=== PATIENT | male | born 1955 | race Two or more races ===

== ENCOUNTER 2024-05-26 06:02 | Inpatient (IN) | payer OTHER ==
[~2024-05-26] VITALS: Ht 175.3 cm; Wt 106.0 kg
[~2024-05-26 06:02] MED LIST: ASPI-498 OR; B COCAP12 PO; BACL20TA PO; CHOL100067 PO; EZET10TA22 PO; FAMO-68 PO; GABA-339 PO; LOSA-533 PO; MET50T PO; MONT-8 OR; TURMPOW XX; ZINC50TA7 PO
[2024-05-26] MEDS: ceFAZolin 2 GM/D5W100ml 100 ML IV ONE (06:16)
[2024-05-26] MEDS: TRANEXAMIC ACID 20 ML ONE (06:17)
[2024-05-26] MEDS: LIDOCAINE 2% JELLY 11ml (GLYDO) ONE (06:18)
[2024-05-26] MEDS: CIPROFLOXACIN 400MG/200ML 200 ML IV ONE (06:19)
[2024-05-26] MEDS: SUCCINYLCHOLINE CHLORIDE 20 MG/ML 10ML VIAL IV ONE (06:57)
[2024-05-26] MEDS: ROCURONIUM 10MG/ML 10ML VIAL IV ONE (06:57)
[2024-05-26] MEDS ORDERED: LIDOCAINE 2% TOPICAL JELLY 5 ML URJT TOP ONE (07:06)
[2024-05-26] MEDS ORDERED: LIDOCAINE 1% INJ PF 5ML AMP ONE ×2 (07:06→07:18)
[2024-05-26] MEDS ORDERED: MEPERIDINE HCL (50 MG/ML) 1 ML VIAL ONE (07:06)
[2024-05-26] MEDS ORDERED: PROPOFOL 10 MG/ML 20 ML IV ONE ×4 (07:06→13:21)
[2024-05-26] MEDS ORDERED: fentaNYL CITRATE 100 MCG/2 ML VL ONE ×2 (07:06→09:14)
[2024-05-26] MEDS ORDERED: SODIUM CHLORIDE LOCK 10 ML ONE (07:06)
[2024-05-26] MEDS ORDERED: MIDAZOLAM HCL 2MG/2ML 2ml VIAL (1mg/ml) ONE (07:06)
[2024-05-26] MEDS ORDERED: DexAMETHasone SOD PHOS 10MG/1ML VIAL INJ ONE (07:06)
[2024-05-26] MEDS ORDERED: ONDANSETRON HCL 4 MG/2 ML VIAL ONE (07:06)
[2024-05-26] MEDS: METOCLOPRAMIDE HCL 5MG/ml INJ 2ml VIAL IV ONE (07:30)
[2024-05-26] MEDS ORDERED: MORPHINE SULFATE INJ 2 MG/ml SYRG IV PRN ×3 (07:30→11:00)
[2024-05-26] MEDS ORDERED: fentaNYL CITRATE 100 MCG/2 ML VL IV PRN (07:30)
[2024-05-26] MEDS ORDERED: HYDROmorphone HCL 2 MG/ML VL/or syr IV PRN ×2 (07:30)
--- NOTE | 2024-05-26 07:48 | DVHHP2 ---
History Allergies: Coded Allergies: NO KNOWN ALLERGIES (Unverified , 05/21/24) Chief Complaint: Lumbar stenosis with neurogenic claudication Present Illness(Onset/Duration Patient has had severe incapacitating pain for the past three years which has progressively gotten worse over time Noncontributory in this case Past Surgical History: Other (No prior spine surgeries) Exam Exam General Appearance: Normal HEENT: Normal ENT Inspection Neck: Normal Respiratory: No Accessory Muscle Use, None, No Respiratory Distress Cardiovascular: No JVD, Normal Peripheral Pulses Breast Exam: Deferred Gastrointestinal: Other (No complaints) Genitalia: Deferred Pelvic: Deferred Rectal: Deferred Extremities: Normal inspection, Normal range of motion, Other (5/5 pedal pushes and pulls, lower extremity strength. Hypersensitivity to bilateral legs all planes. Right leg started having radicular symptoms before the left.) Neurologic: Alert, No Motor Deficits, Normal Affect Cerebellar Function: Other (Gait not tested), NOT DONE Skin: Normal Color Plan Additional comments: Patient arrives today for elective spine surgery with Dr. James gaines. Lumbar 3-5 posterior spinal decompression with L3-4, L4-5 posterior spinal interbody fusion with instrumentation bone graft. The patient was informed of the risks and benefits of the procedure. These include but are not limited to complications of anesthesia, postoperative infection, incomplete relief of symptoms, recurrence of symptoms, damage to blood vessels, nerves and tendons, deep venous thrombosis, pulmonary embolism and possible need for repeat surgery in the future. The risks/benefits/alternatives of surgery including but not limited to pain, bleeding, infection, damage to surrounding soft tissue structures, need for reoperation or future surgery, persistent pain/disability/deformity, pseudoarthrotsis, bone graft collapse or extrusion of interbody device, instrumentation failure, need for instrumentation removal, dural tear, temporary or permanent nerve root damage, paralysis, stroke, deep vein thrombosis, pulmonary embolism, and any associated anesthetic risk (dry mouth, sore throat, dental damage, myocardial infarction, respiratory depression, blindness) were described to the patient in detail and the patient wishes to proceed. No guarantee of surgical outcome/improvement was implied. All of the questions were answered thoroughly and consents were obtained. We will obtain all the necessary preop tests in order for the patient to be cleared medically. Call with questions Mark [facility] Orthopaedic Spine Surgery nurse practitioner For Dr Lazarus Tamayo - for staff use only Patient was examined, chart reviewed, labs evaluated, and diagnostic studies and findings analyzed. Case was discussed with Dr. James Tamayo who formulated the plan of care. This medical document was created using an electronic medical record system with [employer] dictation system. Although this document has been carefully reviewed, there might still be some phonetic and typographical errors. These areas are purely typographical due to imperfections of the software programs, and do not reflect any compromise in the patient's medical care. JENNIFER OLIVERA NP May 26, 2024 07:48
--- NOTE | 2024-05-26 07:50 | POSTOP ---
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 Operation performed Lumbar 5 laminectomy with Lumbar 5 foraminotomies and facetectomies to decompress central canal and Lumbar 5 nerve roots Lumbar 4 laminectomy with Lumbar 4 foraminotomies and facetectomies to decompress central canal and Lumbar 4 nerve roots Bilateral Sacral 1 Laminotomies/Foraminotomies/Facetectomies to decompress the central canal and Bilateral Sacral 1 nerve Roots Lumbar 4 to 5 posterior spinal interbody fusion with PEEK cage Lumbar 5 to sacral 1 posterior spinal inter transverse fusion with bone graft Lumbar 4 to sacral 1 posterior spinal instrumentation with pedicle screws Specimen None Anesthesia: General Anesthesiologist: Dr. Sandoval Blood Loss(fluid mgmt) See anesthesia record Tourniquet Time No tourniquet used Surgeon Dr. Ramirez palmar Solar Engineer Michelle Francisco NP Complications & Mgmt None Additional Remarks POD # 0 Dx: lumbar spinal stenosis /degenerative scoliosis lumbar spine. Isthmic spondylolisthesis L5/S1 with bilateral pars defects at L5 -DVT PPX: -Hold all chemical DVT/ blood thinners for 14 days postoperatively -use mechanical DVT PPX such as SCD's, ambulation -Disposition: -Pending -Discharge RX pending -Follow up appointment: with Dr Tamayo on JUN 01 2024 @2pm [id number] [facility] [address] [address] -Pain: - IV pain meds post op day 1, with PO supplementation, goal is to progress weaning off IV medications and control pain with PO only. morphine 4mg q 4 hours (PAIN 7-10) - P.O. analgesics:Tylenol 650MG (PAIN 1-3) Lillian 10/325 mg (PAIN 4-6) - Muscle relaxers scheduled administration. This is a beneficial medications for the incisional pain as it is mostly related to muscle spasms. Flexeril 10 mg TID - Cepacol throat lozenges as needed for sore throat -Antibiotics Operative recommendations: -Postoperative dose:-Post operative antibiotics cefazolin 1 g IV piggyback every 8 hours x 48 hours total of 6 doses -Activity: -Pending PT evaluation and patients progression -Sit at side of bed for meals -Goal: Ambulate independently and safely (may use assistive devices if needed) -Brace: - TLSO brace when mobilizing -Medical Therapy goals: -Afebrile- Patient may develop a expected post operative fever by day 2-3, this may not be accompanied with a elevation in WBC. if fever develops: Acetaminophen for fever. Albuterol nebulizer Tx every 12 hours for 24 hours to facilitate adequate lung expansion and prevent development of atelectasis. -Euglycemic: bloods sugars under 130mmol/L for optimal healing -Normotensive: Avoid events of hypertension. This helps to keep post operative healing intact and avoids destabilization of beneficial hemostatic coagulation. -Lumbar: -If patient is comfortable encouraged the patient to lay on their side to facilitate wound healing -Drains: -Hemovac drains: These will be to full compression unless otherwise ordered. please record and document output AND characteristic of fluid present independently at least once a shift, more often as needed. If output is greater than 100 ml in one hour of kelli blood call provider. These drains will be removed once the drainage is at a acceptable level (generally less than 100ml in 24 hours) -Harjeet dressing: This will stay in place and will be removed at the patients follow up visit. Nursing is to assess the seal and power source. The seal should be intact and the power source should have a green flashing light indicating it is functioning well. Batteries can last up to 14 days. If a leak develops the dressing edges can be reinforced with a Tegaderm dressing to reestablish intact seal. The Harjeet dressing is NOT a wound vac. This does not get changed, it does not need home health management. -Record output independently, drain 1. Is a deep drain and drain 2. Is a superficial drain. Wound drainage is described by type, color, amount, and odor. Drainage can be 1 Serous: Clear and thin, may be present in healing healthy wound. 2 Serosanguineous containing blood may also be present and healthy healing wound 3. Sanguinous primarily blood 4. Purulent this is thick, white, and pus like. It may be indicated to give of a infection and should constitute a call to the provider immediately with the plan that the sample should be cultured. -Funmilayo: UA sent from funmilayo SHARMA in place -Dressings Take care not to disrupt the HARJEET dressing seal. If there is a break in the seal it can be trouble shot with a Tegaderm dressing. -Dressing to Hemovac drains may be changed once the drains have been removed by the provider. -Bowel management: -Colace 100mg bid -Diet: -Clear liquid diet and advance as patient tolerates within dietary limitations ( example: diabetic, Cardiac) -Incentive Spirometer: -10 x hour while awake, RN please educate and observe repeat demonstration, have IS at bedside POD #1 -X-rays: - none indicated at this time -Consults: -Physical Therapy evaluation, treatment recommendations, and discharge recommendations Call with questions Mark Francisco [facility]- Orthopaedic Spine Surgery nurse practitioner For Dr Lazarus Tamayo [phone]- for staff use only Patient was examined, chart reviewed, labs evaluated, and diagnostic studies and findings analyzed. Case was discussed with Dr. James Tamayo who formulated the plan of care. This medical document was created using an electronic medical record system with [employer] dictation system. Although this document has been carefully reviewed, there might still be some phonetic and typographical errors. These areas are purely typographical due to imperfections of the software programs, and do not reflect any compromise in the patient's medical care. Date 05/26/24 Time 07:48 MICHELLE FRANCISCO NP May 26, 2024 07:50
[2024-05-26] MEDS: LIDOCAINE W/ EPINEPHRINE 1% 20ML VIAL ONE (08:59)
[2024-05-26] MEDS ORDERED: ONDANSETRON HCL 4 MG/2 ML VIAL IV PRN (11:00)
[2024-05-26] MEDS ORDERED: ceFAZolin 1GM/50ML 50 ML IV SCH (11:00)
[2024-05-26] MEDS ORDERED: NITROGLYCERIN 0.4 MG SL TAB SL PRN (11:00)
[2024-05-26] MEDS ORDERED: DOCUSATE SOD 100 MG CAP PO PRN (11:00)
[2024-05-26] MEDS ORDERED: MILK OF MAGNESIA 30ML SUSP PO PRN (11:00)
--- NOTE | 2024-05-26 11:07 | DVHOP2 ---
Operative Report - 2 Report Details Date: 05/26/24 Preop Diagnosis: lumbar spinal stenosis /degenerative scoliosis lumbar spine Postop Diagnosis: 1. same as pre op 2. isthmic spondylolisthesis L5/S1 with bilateral pars defects at L5 Surgeon: James Tamayo MD Head Of Mobile: Michelle Olivera NP Anesthesiologist: tyson Anesthesia: General Consent: The patient was informed of the risks and benefits of the procedure. These include but are not limited to complications of anesthesia, postoperative infection, incomplete relief of symptoms, recurrence of symptoms, damage to blood vessels, nerves and tendons, deep venous thrombosis, pulmonary embolism and possible need for repeat surgery in the future. Name of Procedure Performed see detailed note Procedure Details Procedure Details: Pre-op Diagnosis: Lumbar Degenerative Disk Disease and Lumbar Spinal Stenosis causing Incapacitating back pain, radiculopathy and progressive neurologic deficit Post-op Diagnosis: Lumbar Degenerative Disk Disease and Lumbar Spinal Stenosis causing Incapacitating back pain, radiculopathy and progressive neurologic deficit along with an isthmic spondylolisthesis at L5/S1 with bilateral pas defects Procedure: Lumbar 5 laminectomy with Lumbar 5 foraminotomies and facetectomies to decompress central canal and Lumbar 5 nerve roots Lumbar 4 laminectomy with Lumbar 4 foraminotomies and facetectomies to dec ompress central canal and Lumbar 4 nerve roots Bilateral Sacral 1 Laminotomies/Foraminotomies/Facetectomies to decompress the central canal and Bilateral Sacral 1 nerve Roots Lumbar 4 to 5 posterior spinal interbody fusion with PEEK cage Lumbar 5 to sacral 1 posterior spinal inter transverse fusion with bone graft Lumbar 4 to sacral 1 posterior spinal instrumentation with pedicle screws Local Bone Autograft For Fusion Allograft Bone Substitute (Bacterin) to augment Fusion Use of Demineralized Bone Matrix to Augment Fusion Microscope For Microdissection Surgeon: James Tamayo MD Assist: DRAWIN Estrada Anesthesia: General Fluids and EBL: See anesthesia note Patient was seen in the Pre Anesthesia Care Unit (PACU) and the operative site was initialed by me. All questions were answered to the patients satisfaction and chart reviewed. The patient was taken to the operative room where pre- operative antibiotics were given 30 minutes prior to incision. General anesthesia was induced and neuro-monitoring leads placed. Aragon catheter was placed. The patient was turned prone onto the [facility] spinal table. While positioning, I made sure that the belly was free to allow proper expansion of the lungs. The hips were extended and all bony prominences padded. The shoulders were abducted 80 degree and the elbows flexed 100 degrees with no tension on the brachial plexus. I check the foot arterial pulses and they were palpable. The patient was prepped and draped and time out was taken at this time per usual protocol. At this time, the C-arm fluoroscope was brought in and was used to bahman the incision borders proximally and distally. Immediately on placement on the table, and visualizing the lateal c arm image, a 5mm L5/S1 spondylolisthesis was appreciated. This finding was not seen in pre op films. At this point, it was clear that stabilzation was needed at the L5/S1 level. It was prudent to avoid a 3 level fusion to minimize the risk of chronic back pain and stiffness so the construct had to be moved from L3to5 to Lumba 4 to sacral 1 interbody fusion instead. However a decompression of L3/4 was still done Using a Number 10 Blade, an incision was made extending it proximally and distally per C arm bahman from the posterior spinous process of lumbar 4 to sacral 1 , down to the lumbo-dorsal fascia. All bleeding was controlled with electrocautery. Self-retaining retractors were placed. Electrocautery was then used to take down the lumbo-dorsal fascia, to free the muscle off the bone bilaterally. A Genevieve retractor was placed over the posterior spinous process proximally and a lateral C-arm fluoroscope image was taken to insure we were at the correct level. Next, using bovie electro cautery, The deep fascia laterally to the facet joints was removed to expose the transverse processes of lumbar 4,5 and sacral 1 while taking care to avoid injuring the facet capsule at the proximal end of the incision. Next, the microscope was bought in for visualization and using a Luxell rongeur, the posterior spinous process of lumbar 4,5 and sacral 1 were removed and the bone was saved for use as local autograft. I used alternating Kerison 2 mm and 3 mm rongeurs to perform central laminectomies lumbar 5 and 4 and bilateral laminotomies/foramintomies of sacral. to decompress the central canal. Next using alternating Kerison 2mm and 3 mm rongeurs, the superior articular facets of lumbar 4,5, and sacral 1 were removed bilaterally to decompress the lateral recess (facetectomies) and then extended proximally to decompress the foramen bilaterally (foraminotomies). I used a ball tipped nerve probed to insure that the respective nerve roots were able to be mobilized 5mm in each direction were unimpeded in the lateral recess and foramen. Next I carefully inspected the dura to make sure no durotomy was visible and it was not. Next I retracted the sacral 1 nerve on the right and used increasing size micha and curved curettes to prepare the disc space down to clean and bleeding bone. Next sued increasing size micha and placed a PEEK interbody device fulled with bone graft in the L4/5 space. I used local bone autograft to place in the intertransverse space at L4/5 and L/5 and S1 . Both PEEK cages were 10X28 in size. I covered the exposed dura with gelfoam soaked in thrombin and the microscope was wheeled away from the operative filed. The C-arm fluoroscope was brought in and perfect AP views of the lumbar 4, 5 and sacral 1 pedicles were obtained. I placed bilateral pedicle screws at these levels by: using a Lenke awl to make a harbor boat pilot hole, then a ball tip robe to make sure there was no pedicle breach, then a tap to prepare the track and a 6.5 mm diameter and 45mm for lumbar 4, 5 and for sacral 1 a 35mm length pedicle screw was placed bilaterally. This step to place bilateral pedicle screws was repeated up to the lumbar 4, 5 and sacral 1 level. Next, the c-arm fluoroscope took an AP and lateral x-ray to ensure proper placement of the pedicle screws. Next, the neuro-stimulation probe was placed over the tip of each screw and each screw stimulated only after a current greater than 10 mA was delivered to the screw. Next , I took a Midas Sean Drill to decorticate the transverse process which were exposed and local bone graft, Bacterin allograft bone substitute and Demineralized bone matrix were placed along the inter transverse process intervals bilaterally (the fusion bed). Next a curved andrew sized to fit the pedicle screw interval was placed and secured to each pedicle screw using set screws, The set screws were tightened using a torque screwdriver (set to 10 N*M torque) to secure the andrew to the pedicle screws bilaterally. Final AP and lateral C arm fluoroscopic films were taken at this time. Next a 10 Sinhala diameter Hemovac drain was laced deep to the lumbo- dorsal fascia. The lumbo-dorsal fascia was closed with interrupted 0-Vicry sutures. The subcutaneous tissue was closed with interrupted 2-0 Vicryl sutures. The skin was closed with 2-0 running nylon subcuticular suture. Sterile dressings were place. The pt. was turned supine onto the stretcher, extubated and taken to the recovery room in stable condition. Once in PACU, TLSO lumbar brace and external bone stimulator applied Condition Stable Disposition Still a Patient JAMES TAMAYO MD May 26, 2024 11:07
[2024-05-26 11:24] VITALS: PULSE 72; RESP 12; O2SAT 96
[2024-05-26] MEDS: HYDROmorphone HCL 2 MG/ML VL/or syr ONE (11:48)
[2024-05-26] MEDS: HYDROmorphone HCL 2 MG/ML VL/or syr IV ONE (11:50)
[2024-05-26] MEDS ORDERED: PATIENTS OWN MEDICATION (Gabapentin 600 MG) PO SCH (12:00)
[2024-05-26 12:06] LABS: Urine Amorphous Crystal FEW /hpf (None Seen); Urine Bacteria FEW /hpf (None Seen); Urine Blood 1+ /uL (Negative); Urine Clarity Ex.Turbid (Clear); Urine Color Colorless (Yellow); Urine Protein, UAD TRACE (Negative); Urine Specific Gravity 1.021 (1.001-1.035); Urine Urobilinogen Normal (Negative); Urine WBC 22 /hpf (0 - 3)
[2024-05-26] MEDS ORDERED: THROAT LOZENGES(CEPASTAT) MT PRN (12:15)
[2024-05-26] MEDS: GABAPENTIN 300 MG CAP PO SCH (13:46)
[2024-05-26] MEDS: ceFAZolin 1GM/50ML 50 ML IV SCH (15:00)
--- NOTE | 2024-05-26 16:00 | DVH ---
CLINICAL INDICATION: L3-5 POSTERIOR SPINAL DECOMPRESSION W SPINAL INTERBODY FUSIO TECHNIQUE: 48 radiographic views of the surgery in the lumbar spine were obtained. Comparison: None FINDINGS/IMPRESSION: 40 images of placement of pedicle screws and rods and intervertebral spacers at L4-L5 and S1.
--- NOTE | 2024-05-26 16:13 | DVH ---
C-ARM FLUOROSCOPY: PROCEDURE: Decompression of L 4 5 and S1 HISTORY: LOW BACK PAIN FLUOROSCOPY TIME: 3 minutes 50 seconds TECHNIQUE: Spinal decompression L3 through S1. Placement of pedicle screws rods and intervertebral sp acers Findings/ IMPRESSION: 1. Postop changes from spinal decompression. Placement of pedicle screws and rods at L4-5 and S1 with intervertebral spacers in place
[2024-05-26 17:59] LABS: Urine Bacteria None Seen /hpf (None Seen); Urine WBC None Seen /hpf (0 - 3)
[2024-05-26] MEDS ORDERED: GABAPENTIN 300 MG CAP PO SCH (18:00)
[2024-05-26 18:24] LABS: Urine Blood 3+ /uL (Negative); Urine Clarity Turbid (Clear); Urine Color Light-Yellow (Yellow); Urine Epithelial Cast FEW /hpf (<5); Urine Mucus FEW (None Seen); Urine Protein, UAD 1+ (Negative); Urine Specific Gravity 1.027 (1.001-1.035); Urine Urobilinogen Normal (Negative); Urine pH 5.5 (5.0-9.0)
[2024-05-26 20:00] VITALS: PULSE 103; O2SAT 95
[2024-05-26] MEDS: HYDROcodone-ACET 10/325MG TAB PO PRN (20:51)
[2024-05-26] MEDS: METOPROLOL TARTRATE 50 MG TAB PO SCH (20:51)
[2024-05-26 21:00] VITALS: BP 131/74; PULSE 63; RESP 18; TEMP 98; O2SAT 95
[2024-05-26] MEDS ORDERED: DOCUSATE SOD 100 MG CAP PO SCH (22:00)
[2024-05-27] VITALS (9 sets, daily range): BP systolic 91–130; BP diastolic 46–76; PULSE 73–83; RESP 15–19; TEMP 97.4–99.3; O2SAT 75–98
[2024-05-27] MEDS: D5W/SOD CHLO 0.9% 1,000 ML IV SCH (03:21)
[2024-05-27] MEDS: ASPirin-EC 81 mg tab PO SCH (09:59)
[2024-05-27] MEDS: MONTELUKAST SODIUM 10 MG TAB PO SCH (09:59)
[2024-05-27] MEDS: FAMOTIDINE 20 MG TAB PO SCH (09:59)
[2024-05-27] MEDS: LOSARTAN POTASSIUM 25 MG TAB PO SCH (10:00)
[2024-05-27] MEDS: EZETIMIBE 10 MG TAB PO SCH (10:01)
--- NOTE | 2024-05-27 15:07 | DVHPN2 ---
Progress Note - Surgical Date Seen: May 27, 2024 Post op day Post op day: 1 Subjective Patient reports: No new complaints, Feels better Review of Systems: HEENT:Normal, CVS:Normal, RESPIRATORY:Normal, GI:Normal, :Normal, MSK:Normal, NEURO:Normal Objective Vital signs Vital Sign Date Time Temp Pulse Resp B/P (MAP) Pulse Ox O2 Delivery O2 Flow Rate FiO2 05/27/24 14:40 97.9 79 18 122/75 (91) 98 97.9 05/27/24 08:00 Nasal Cannula* 2 28 Total Intake and Output 05/26/24 05/26/24 05/27/24 14:59 22:59 06:59 Intake Total 200 ml 250 ml Output Total 40 ml 75 ml 290 ml Balance -40 ml 125 ml -40 ml Medications Current Medications Medications Dose Ordered Sig/Tyson Route Start Time Stop Time Status Last Admin Dose Admin Dextrose/Sodium Chloride 1,000 ml @ 100 mls/hr Q10H IV 05/26/24 11:00 05/27/24 03:22 100 MLS/HR Ondansetron HCl 4 mg Q4HP PRN IV 05/26/24 11:00 Acetaminophen 650 mg Q6HP PRN PO 05/26/24 11:00 Acetaminophen/ Hydrocodone Bitart 1 tab Q6HP PRN PO 05/26/24 11:00 05/27/24 10:06 1 TAB Morphine Sulfate 4 mg Q4HP PRN IV 05/26/24 11:00 Magnesium Hydroxide 30 ml Q12HP PRN PO 05/26/24 11:00 Docusate Sodium 100 mg Q12HP PRN PO 05/26/24 11:00 Cefazolin Sodium 50 ml @ 50 mls/hr Q8H IV 05/26/24 11:00 05/26/24 19:59 UNV Cefazolin Sodium 50 ml @ 100 mls/hr Q8HR IV 05/26/24 14:00 05/28/24 06:29 05/27/24 13:37 100 MLS/HR Nitroglycerin 0.4 mg Q5MINP PRN SL 05/26/24 11:00 Morphine Sulfate 2 mg Q30M PRN IV 05/26/24 11:00 Aspirin 81 mg DAILY PO 05/27/24 10:00 05/27/24 09:59 81 MG EZETIMIBE 10 mg DAILY PO 05/27/24 10:00 05/27/24 10:01 10 MG Famotidine 40 mg DAILYPRN PO 05/27/24 10:00 05/27/24 09:59 40 MG Losartan Potassium 10 mg DAILY PO 05/27/24 10:00 05/27/24 10:00 10 MG Metoprolol Tartrate 50 mg BID PO 05/26/24 22:00 05/27/24 10:01 50 MG Montelukast Sodium 10 mg DAILY PO 05/27/24 10:00 05/27/24 09:59 10 MG Patient Own Medication 600 mg QID PO 05/26/24 12:00 UNV Throat Lozenges 1 di Q2HP PRN MT 05/26/24 12:15 Gabapentin 600 mg QID PO 05/26/24 18:00 05/27/24 12:00 600 MG Examination: GENERAL:Normal, HEENT:Normal, NECK:Normal, LUNGS:Normal, CVS:Normal, ABDOMEN:Normal, MSK:Normal, SKIN:Normal (HARJEET intact, seal intact, darins intact X2), NEURO:Normal (all preoperative symptoms have 100% resolved), :Normal Problem List/Assessment/Plan Problems: (1) Muscle spasm of back (2) Postoperative pain after spinal surgery Assessment and Plan Dx: lumbar spinal stenosis /degenerative scoliosis lumbar spine. 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 morphine 4mg q 4 hours (PAIN 7-10) - P.O. analgesics:Tylenol 650MG (PAIN 1-3) [place] 10/325 mg (PAIN 4-6) - Muscle relaxers scheduled administration. This is a beneficial medications for the incisional pain as it is mostly related to muscle spasms. Flexeril 10 mg TID - Cepacol throat lozenges as needed for sore throat -Antibiotics Operative recommendations: -Postoperative dose:-Post operative antibiotics cefazolin 1 g IV piggyback every 8 hours x 48 hours total of 6 doses -Activity: -Pending PT evaluation and patients progression -Sit at side of bed for meals -Goal: Ambulate independently and safely (may use assistive devices if needed) -Medical Therapy goals: -Afebrile- Patient may develop a expected post operative fever by day 2-3, this may not be accompanied with a elevation in WBC. if fever develops: Acetaminophen for fever. Albuterol nebulizer Tx every 12 hours for 24 hours to facilitate adequate lung expansion and prevent development of atelectasis. -Euglycemic: bloods sugars under 130mmol/L for optimal healing -Normotensive: Avoid events of hypertension. This helps to keep post operative healing intact and avoids destabilization of beneficial hemostatic coagulation. -Lumbar: -If patient is comfortable encouraged the patient to lay on their side to facilitate wound healing -Drains: -Hemovac drains: These will be to full compression unless otherwise ordered. please record and document output AND characteristic of fluid present independently at least once a shift, more often as needed. If output is greater than 100 ml in one hour of kelli blood call provider. These drains will be removed once the drainage is at a acceptable level (generally less than 100ml in 24 hours) -Harjeet dressing: This will stay in place and will be removed at the patients follow up visit. Nursing is to assess the seal and power source. The seal should be intact and the power source should have a green flashing light indicating it is functioning well. Batteries can last up to 14 days. If a leak develops the dressing edges can be reinforced with a Tegaderm dressing to reestablish intact seal. The Harjeet dressing is NOT a wound vac. This does not get changed, it does not need home health management. -Record output independently, drain 1. Is a deep drain and drain 2. Is a superficial drain. Wound drainage is described by type, color, amount, and odor. Drainage can be 1 Serous: Clear and thin, may be present in healing healthy wound. 2 Serosanguineous containing blood may also be present and healthy healing wound 3. Sanguinous primarily blood 4. Purulent this is thick, white, and pus like. It may be indicated to give of a infection and should constitute a call to the provider immediately with the plan that the sample should be cultured. -Mello: UA sent from OR, mello in place -Dressings Take care not to disrupt the HARJEET dressing seal. If there is a break in the seal it can be trouble shot with a Tegaderm dressing. -Dressing to Hemovac drains may be changed once the drains have been removed by the provider. -Bowel management: -Colace 100mg bid -Diet: -Clear liquid diet and advance as patient tolerates within dietary limitations ( example: diabetic, Cardiac) -Incentive Spirometer: -10 x hour while awake, RN please educate and observe repeat demonstration, have IS at bedside POD #1 -X-rays: - none indicated at this time -Consults: -Physical Therapy evaluation, treatment recommendations, and discharge recommendations Call with questions Mark Francisco [facility]- Orthopaedic Spine Surgery nurse practitioner For Dr Lazarus Tamayo [phone]- for staff use only Patient was examined, chart reviewed, labs evaluated, and diagnostic studies and findings analyzed. Case was discussed with Dr. James Tamayo who formulated the plan of care. This medical document was created using an electronic medical record system with [employer] dictation system. Although this document has been carefully reviewed, there might still be some phonetic and typographical errors. These areas are purely typographical due to imperfections of the software programs, and do not reflect any compromise in the patient's medical care. 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
[2024-05-28] VITALS (8 sets, daily range): BP systolic 113–142; BP diastolic 61–81; PULSE 45–88; RESP 16–19; TEMP 97.9–98.6; O2SAT 92–98
--- NOTE | 2024-05-28 12:57 | DVHINCON2 ---
Date of service: May 28, 2024 Reason for Consultation Medical management while in the hospital. Postop lumbar spine surgery. History of Present Illness This is a 69-year-old gentleman with a DJD of the lumbar spine, hypertension dyslipidemia admitted to the hospital by spine surgeon and underwent a successful lumbar spine surgery. Postop patient is admitted and medical consultation is obtained for medical management while in the hospital. Currently patient clinically stable. Denies any chest pain or shortness for breath. Other review of systems reviewed normal. Past Medical History Hypertension, dyslipidemia, COPD, DJD lumbar spine Past Surgical History Post lumbar spine surgery Family History: FH: COPD (chronic obstructive pulmonary disease) G8 FATHER Allergies: Coded Allergies: NO KNOWN ALLERGIES (Unverified , 05/21/24) Home Meds Reported Medications B Complex W/ C (B COMPLEX/VITAMIN C) Vit C Cap, 1 C PO DAILY, CAP 05/21/24 Cholecalciferol (D3) 250 Mcg Cap, 250 MCG PO DAILY, CAP 05/21/24 Zinc Gluconate (Zinc) 50 Mg Tab, 50 MG PO DAILY, TAB 05/21/24 Turmeric (Turmeric) Pow, 1 XX DAILY, POW 05/21/24 Aspirin (ASPIRIN 81) 81 Mg Tab, 81 MG OR DAILY, TAB 05/21/24 Famotidine (Gnp Acid Unpaid Intern Maximum) 20 Mg Tab, 40 MG PO DAILYPRN, TAB 05/21/24 Baclofen (Baclofen) 20 Mg Tab, 10 MG PO DAILY, TAB 05/21/24 Gabapentin (Gabapentin) 600 Mg Tab, 600 MG PO QID, TAB 05/21/24 Montelukast Sodium (MONTELUKAST SODIUM) 10 Mg Tab, 10 MG OR DAILY, TAB 05/21/24 Losartan Potassium (Losartan Potassium) 25 Mg Tab, 10 MG PO DAILY, TAB 05/21/24 Metoprolol Tartrate (LOPRESSOR TABLET) 50 Mg Tb, 50 MG PO BID, TAB 05/21/24 Ezetimibe (Zetia) 10 Mg Tab, 10 MG PO DAILY, TAB 05/21/24 Review of Systems No complaints of chest pain or shortness for breath. No cough or productive sputum. No fevers chills or sweats. Other review of systems reviewed normal. Vital Signs Vital Signs Date Time Temp Pulse Resp B/P (MAP) Pulse Ox O2 Delivery O2 Flow Rate FiO2 05/28/24 12:33 97.9 80 18 140/81 (100) 97 97.9 05/28/24 08:00 Nasal Cannula* 2 28 Physical Exam Comfortable in bed. No complaints. Using urinal to urinate. Still has a BILLIE drains in his lumbar spine region. HEENT neck supple no JVD pupils equal round react to light. Heart regular rate and rhythm S1 plus S2 without murmurs. Lungs fair air movement chest tube will expansion. No rales wheezes. Abdomen soft nontender positive bowel sounds. Extremities no edema positive pulses. Neurologically no focal deficits. Labs/Diagnostic Data Labs Test 05/26/24 17:57 05/26/24 11:30 Range/Units Urine Color Light-yellow Yellow Urine Clarity Turbid H Clear Urine pH 5.5 5.0-9.0 Urine Specific [place] 1.027 1.001-1.035 Urine Protein 1+ H Negative Urine Ketones Negative Negative Urine Blood 3+ H Negative /uL Urine Nitrite Negative Negative Urine Bilirubin Negative Negative Urine Urobilinogen Normal Negative mg/dL Urine Leukocyte Esterase Negative Negative /uL Urine RBC 182 0 - 3 /hpf Urine WBC None seen 0 - 3 /hpf Urine Squamous Epithelial Cells Few <5 /hpf Urine Uric Acid Crystals Few None Seen /hpf Urine Bacteria None seen None Seen /hpf Urine Epithelial Casts Few <5 /hpf Urine Mucus Few None Seen Urine Glucose Normal Normal mg/dL Urine Amorphous Crystals Few None Seen /hpf Assessment Hypertension Dyslipidemia COPD DJD lumbar spine with claudication Status post lumbar spine surgery Patient is clinically stable. Pain is tolerable. Undergoing physical therapy evaluation. I have reviewed his chronic home medications. Patient is started on home medications include blood pressure and cholesterol medicines. His vital signs are stable. At present continue current supportive care and treatment as he is on. I will discontinue IV fluids given he is tolerating oral diet and liquid intake. Given no labs were drawn in the last 48 hours I will do a postop routine labs for CBC and a BMP today. Production [employer] involved for home health and home physical therapy arrangements. Once patient is re-evaluated by surgeon and BILLIE drains removed then plan for discharge home as appropriate further recommendations. For now continue current care plan. Discussed with the nurse regarding care plan. Problems(with codes): (1) Muscle spasm of back (2) Postoperative pain after spinal surgery Plan discussed with: Patient, Other OSCAR JONAS MD May 28, 2024 12:57
[2024-05-28 17:47] LABS: Basophils # (auto) 0 10 ^3/uL (0-0.2); Basophils % (auto) 0.3 % (0.0-2.0); Eosinophils # (auto) 0.1 10 ^3/uL (0-0.8); Eosinophils % (auto) 0.9 % (0.0-7.0); Hematocrit 35.3 % (41.0-53.0); Hemoglobin 11.7 g/dL (13.5-17.5); Lymphocytes # (auto) 1.8 10 ^3/uL (0.4-5.4); Lymphocytes % (auto) 22.1 % (10.0-50.0); Mean Corpuscular Hemoglobin 30.4 pg (28.0-32.0); Mean Corpuscular Hgb Conc. 33.1 g/dL (32.0-36.0); Mean Corpuscular Volume 91.7 fL (80.0-100.0); Monocytes # (auto) 1.3 10 ^3/uL (0-1.3); Monocytes % (auto) 15.3 % (0.0-12.0); Neutrophils % (auto) 61.4 % (37.0-80.0); Platelet Count (auto) 220 10^3/uL (140-450); Red Blood Cells 3.85 10^6/uL (4.5-5.90); Red Cell Distribution Width 13.9 % (11.8-14.3); White Blood Cell 8.2 10^3/uL (4.4-10.8)
[2024-05-28 18:00] LABS: Alanine Aminotransferase 12 U/L (7-40); Albumin 3.8 g/dL (3.2-4.8); Alkaline Phosphatase 52 U/L (46-116); Anion Gap 5 (5-15); Aspartate Aminotransferase 23 U/L (13-40); BUN/Creatinine Ratio 13.6 (10.0-20.0); Bilirubin, Total 0.3 mg/dL (0.2-1.0); Blood Urea Nitrogen 14 mg/dL (9-23); Calcium 9.4 mg/dL (8.7-10.4); Carbon Dioxide 27 mmol/L (20-31); Chloride 106 mmol/L (98-107); Glucose 96 mg/dL (74-106); Potassium 4.3 mmol/L (3.5-5.1); Sodium 138 mmol/L (136-145); Total Protein 6.4 g/dL (5.7-8.2)
--- NOTE | 2024-05-28 21:31 | PRN ---
Misceleneous Note Note Note Drain discontinued today, minimal sanguineous output noted Patient has had ambulating in the hallways with a walker, patient states he pain is under control, muscle spasms are under control. Patient is progressing to discharge. Patient is requesting a walker to have at home Continue oral analgesic medications, muscle relaxers, stool softeners. Patient states that he is eating well, voiding and has passed gas. He is ambulating very well with a walker. Patient states the medications that he is currently taking are working well for him and he will be comfortable taking them at home. Call with questions Mark [facility] Orthopaedic Spine Surgery nurse practitioner For Dr Lazarus Tamayo - for staff use only Patient was examined, chart reviewed, labs evaluated, and diagnostic studies and findings analyzed. Case was discussed with Dr. James Tamayo who formulated the plan of care. This medical document was created using an electronic medical record system with [employer] dictation system. Although this document has been carefully reviewed, there might still be some phonetic and typographical errors. These areas are purely typographical due to imperfections of the software programs, and do not reflect any compromise in the patient's medical care. JENNIFER OLIVERA NP May 28, 2024 21:30
[2024-05-29] VITALS (9 sets, daily range): BP systolic 108–147; BP diastolic 50–80; PULSE 71–100; RESP 18–20; TEMP 37.2; O2SAT 93–98
[2024-05-29] MEDS: BACLOFEN 10 MG TAB PO PRN (14:30)
[2024-05-29] MEDS ORDERED: SENN-58 PO (14:57)
[2024-05-29] MEDS ORDERED: NALO4SPR2 (14:57)
[2024-05-29] MEDS ORDERED: HYDR-4902 PO (14:57)
--- NOTE | 2024-05-29 15:31 | DVHDS2 ---
Discharge Summary Date of Admission May 26, 2024 at 10:57 Date of Discharge: May 29, 2024 Labs/Diagnostic Data: Laboratory Results Test 05/28/24 17:27 05/26/24 17:57 05/26/24 11:30 White Blood Count 8.2 10^3/uL (4.4-10.8) Red Blood Count 3.85 10^6/uL (4.5-5.90) Hemoglobin 11.7 g/dL (13.5-17.5) Hematocrit 35.3 % (41.0-53.0) Mean Corpuscular Volume 91.7 fL (80.0-100.0) Mean Corpuscular Hemoglobin 30.4 pg (28.0-32.0) Mean Corpuscular Hemoglobin Concent 33.1 g/dL (32.0-36.0) Red Cell Distribution Width 13.9 % (11.8-14.3) Platelet Count 220 10^3/uL (140-450) Mean Platelet Volume 8.0 fL (6.9-10.8) Neutrophils (%) (Auto) 61.4 % (37.0-80.0) Lymphocytes (%) (Auto) 22.1 % (10.0-50.0) Monocytes (%) (Auto) 15.3 % (0.0-12.0) Eosinophils (%) (Auto) 0.9 % (0.0-7.0) Basophils (%) (Auto) 0.3 % (0.0-2.0) Neutrophils # (Auto) 5.0 10 ^3/uL (1.6-8.6) Lymphocytes # (Auto) 1.8 10 ^3/uL (0.4-5.4) Monocytes # (Auto) 1.3 10 ^3/uL (0-1.3) Eosinophils # (Auto) 0.1 10 ^3/uL (0-0.8) Basophils # (Auto) 0 10 ^3/uL (0-0.2) Nucleated Red Blood Cells 0.0 % Sodium Level 138 mmol/L (136-145) Potassium Level 4.3 mmol/L (3.5-5.1) Chloride Level 106 mmol/L (98-107) Carbon Dioxide Level 27 mmol/L (20-31) Anion Gap 5 (5-15) Blood Urea Nitrogen 14 mg/dL (9-23) Creatinine 1.03 mg/dL (0.700-1.30) Glomerular Filtration Rate Calc 78 mL/min (>90) BUN/Creatinine Ratio 13.6 (10.0-20.0) Serum Glucose 96 mg/dL (74-106) Calcium Level 9.4 mg/dL (8.7-10.4) Total Bilirubin 0.3 mg/dL (0.2-1.0) Aspartate Amino Transferase (AST) 23 U/L (13-40) Alanine Aminotransferase (ALT) 12 U/L (7-40) Alkaline Phosphatase 52 U/L (46-116) Total Protein 6.4 g/dL (5.7-8.2) Albumin 3.8 g/dL (3.2-4.8) Urine Color Light-yellow (Yellow) Urine Clarity Turbid (Clear) Urine pH 5.5 (5.0-9.0) Urine Specific [place] 1.027 (1.001-1.035) Urine Protein 1+ (Negative) Urine Ketones Negative (Negative) Urine Blood 3+ /uL (Negative) Urine Nitrite Negative (Negative) Urine Bilirubin Negative (Negative) Urine Urobilinogen Normal mg/dL (Negative) Urine Leukocyte Esterase Negative /uL (Negative) Urine RBC 182 /hpf (0 - 3) Urine WBC None seen /hpf (0 - 3) Urine Squamous Epithelial Cells Few /hpf (<5) Urine Uric Acid Crystals Few /hpf (None Seen) Urine Bacteria None seen /hpf (None Seen) Urine Epithelial Casts Few /hpf (<5) Urine Mucus Few (None Seen) Urine Glucose Normal mg/dL (Normal) Urine Amorphous Crystals Few /hpf (None Seen) Other Laboratory Tests 05/28/24 17:27 Condition at Discharge: Stable Final Diagnosis/Problems List lumbar spinal stenosis /degenerative scoliosis lumbar spine isthmic spondylolisthesis L5/S1 with bilateral pars defects at L5 Discharge Disposition: Home with Health Services Discharge Instruct/Medications Diet: Consistent carbohydrate, Cardiac 2g Na,low cholest Activity: No Restrictions, As Tolerated Follow Up/Referral: Dr.Parmar Booker surgeon next week Medications: as prescribed and home medications Discharge Statement: "Patient was advised to return to the ER or call 911 if any headaches, dizziness, shortness of breath, chest pain, abdominal pain, bleeding, fevers, or worsening of medical condition. Patient was counseled about treatment plan, medications, possible side effects, patientverbalized understanding. All questions were answered to the best of my ability. This discharge took greater then 30 minutes in planning, reviewing documentation, counseling the patient, and discussing with other team members." ASSESSMENT ASSESSMENT Assessment lumbar spinal stenosis /degenerative scoliosis lumbar spine isthmic spondylolisthesis L5/S1 with bilateral pars defects at L5 OSCAR JONAS MD May 29, 2024 15:31
[2024-05-29] MEDS: ACETAMINOPHEN 325 MG TAB PO PRN (21:29)
[2024-05-30 01:00] VITALS: BP 122/65; PULSE 81; RESP 18; TEMP 98.9; O2SAT 93
[2024-05-30 05:00] VITALS: BP 139/97; PULSE 90; RESP 19; TEMP 98; O2SAT 96
[2024-05-30 08:00] VITALS: PULSE 100
[2024-05-30 09:00] VITALS: BP 130/86; PULSE 80; RESP 20; TEMP 98.3; O2SAT 97
== END 2024-05-30 10:20 | disposition home health service (06) | DRG 428 ==
LOC: SUR 06:02 → TELE 10:57 → TELE-EAST 15:36
PROVIDERS: ADMIT Orthopaedic Surgery; ATTEND Hospitalist
PROC: 01NB0ZZ Release Lumbar Nerve, Open Approach (ICD-10-PCS; 2024-05-26)
PROC: 00NY0ZZ Release Lumbar Spinal Cord, Open Approach (ICD-10-PCS; 2024-05-26)
PROC: 01NR0ZZ Release Sacral Nerve, Open Approach (ICD-10-PCS; 2024-05-26)
PROC: 4A11X4G Monitoring of Peripheral Nervous Electrical Activity, Intraoperative, External Approach (ICD-10-PCS; 2024-05-26)
PROC: 0SG30AJ Fusion of Lumbosacral Joint with Interbody Fusion Device, Posterior Approach, Anterior Column, Open Approach (ICD-10-PCS; 2024-05-26)
PROC: 0SG0071 Fusion of Lumbar Vertebral Joint with Autologous Tissue Substitute, Posterior Approach, Posterior Column, Open Approach (ICD-10-PCS; 2024-05-26)
PROC: 0SG00AJ Fusion of Lumbar Vertebral Joint with Interbody Fusion Device, Posterior Approach, Anterior Column, Open Approach (ICD-10-PCS; principal; 2024-05-26 07:43)
DX: M48.062 Spinal stenosis, lumbar region with neurogenic claudication (principal); J44.9 Chronic obstructive pulmonary disease, unspecified; I73.9 Peripheral vascular disease, unspecified; M43.17 Spondylolisthesis, lumbosacral region; E78.5 Hyperlipidemia, unspecified; M41.56 Other secondary scoliosis, lumbar region; I10 Essential (primary) hypertension; Z82.5 Family history of asthma and other chronic lower respiratory diseases; Z79.82 Long term (current) use of aspirin; Z79.899 Other long term (current) drug therapy; M51.16 Intervertebral disc disorders with radiculopathy, lumbar region; R29.818 Other symptoms and signs involving the nervous system
CPT/HCPCS: 36415; 72100; 76000; 80053; 81001; 85025; 86850; 86900; 86901; 97110; 97116; 97163; 97530; G0378; J0330; J1100; J2250; J2405; J2704